=== PATIENT | female | born 1955 | race Caucasian/White ===

== ENCOUNTER → 2022-11-08 | Outpatient (CLI) | payer MEDICARE, MEDICAID | END | disposition home or self-care (01) | LOC: RADPV 13:24 | PROVIDERS: ATTEND Internal Medicine | DX: M85.88 Other specified disorders of bone density and structure, other site (principal); M81.0 Age-related osteoporosis without current pathological fracture | CPT/HCPCS: 77080 ==

== ENCOUNTER → 2025-06-04 | Outpatient (CLI) | payer MEDICARE, OTHER ==
[~2025-06-04] MED LIST: ASCO500C14 PO; CRAN500T7 PO; DENO60DI SQ; DOCU-385 PO; FAMO20 PO; FERR18CA PO; FOLI-130 PO; LAMO-24 PO; LEVO88TA4 PO; LINA290C PO; LISI-894 PO; LURA40TA2 PO; MULT-1203 PO; OXYB5TAB20 PO; POTA20LI57 PO; SENN-376 PO
== END | disposition home or self-care (01) ==
LOC: RADMN 11:42
PROVIDERS: ATTEND Family Medicine
DX: M19.011 Primary osteoarthritis, right shoulder (principal); M25.411 Effusion, right shoulder
CPT/HCPCS: 71045